=== PATIENT | male | born 1970 | race Caucasian/White ===

== ENCOUNTER 2017-05-25 09:42 | Inpatient (IN) | payer SELFPAY ==
[~2017-05-25] VITALS: Ht 172.7 cm; Wt 102.2 kg
[2017-05-25 09:57] VITALS: Ht 172.7 cm; Wt 102.2 kg
[2017-05-25 11:07] LABS: PLATELET COUNT 190 x10^3mcL (130-400); RED CELL DISTRIBUTION WIDTH 14.2 % (11.5-14.5)
[2017-05-25 11:38] LABS: CALCIUM 7.8 mg/dL (8.5-10.1); CARBON DIOXIDE 25.4 mmol/L (21-32); CHLORIDE SERUM 96 mmol/L (98-107); CREATININE SERUM 1.3 mg/dL (0.7-1.3); GFR1 > 60 mL/min; GLUCOSE SERUM 123 mg/dL (74-106); POTASSIUM SERUM 3.4 mmol/L (3.5-5.1); SODIUM SERUM 134 mmol/L (136-145)
[2017-05-25 11:42] LABS: ALKALINE PHOSPHATASE 66 U/L (46-116); ALT/SGPT 87 U/L (16-63); AST/SGOT 27 U/L (15-37); BILIRUBIN TOTAL 3.64 mg/dL (0.20-1.00); HDL CHOLESTEROL 35 mg/dL (40-60); LIPASE 185 IU/L (73-393); TOTAL PROTEIN, SERUM 7.7 g/dL (6.4-8.2); TRIGLYCERIDES 85 mg/dL (<150)
[2017-05-25 11:43] LABS: ALBUMIN 2.8 g/dL (3.4-5.0); CHOLESTEROL 112 mg/dL (<200); CHOLESTEROL/HDL RATIO 3.2
[2017-05-25 11:44] LABS: BAND NEUTROPHIL 10 % (0-10); BASOPHIL 0 % (0-2); MONOCYTE 7 % (0-7); SEGMENTED NEUTROPHILS 77 % (37-75)
[2017-05-25 11:49] LABS: UA SPECIFIC GRAVITY >=1.030 (1.005-1.035); microscopic required? YES; urine erythrocyte 1+ (NEGATIVE)
[2017-05-25 12:17] LABS: FREE T4 1.22 ng/dL (0.76-1.46)
[2017-05-25 12:42] LABS: T3 TOTAL 0.81 ng/mL
[2017-05-25 14:25] VITALS: BP 114/88
[2017-05-25 15:38] LABS: PHOSPHOROUS 3.2 mg/dL (2.5-4.9)
[2017-05-25 20:48] LABS: BILIRUBIN TOTAL 2.7 mg/dL (0.20-1.00); CALCIUM 7.7 mg/dL (8.5-10.1); CARBON DIOXIDE 24.4 mmol/L (21-32); CREATININE SERUM 1.5 mg/dL (0.7-1.3); POTASSIUM SERUM 3.3 mmol/L (3.5-5.1); TOTAL PROTEIN, SERUM 7.4 g/dL (6.4-8.2)
[2017-05-25 20:50] LABS: ALBUMIN 2.6 g/dL (3.4-5.0)
[2017-05-25 21:13] VITALS: BP 114/71
[2017-05-26 05:50] VITALS: BP 119/80
[2017-05-26 07:27] LABS: BASOPHIL % 0.1 % (0-2); PLATELET COUNT 166 x10^3mcL (130-400); RED CELL DISTRIBUTION WIDTH 14.3 % (11.5-14.5)
[2017-05-26 07:44] LABS: CALCIUM 7.7 mg/dL (8.5-10.1); CARBON DIOXIDE 23.5 mmol/L (21-32); CHLORIDE SERUM 102 mmol/L (98-107); CREATININE SERUM 1.1 mg/dL (0.7-1.3); GFR1 > 60 mL/min; GLUCOSE SERUM 114 mg/dL (74-106); MAGNESIUM 2.3 mg/dL (1.8-2.4); PHOSPHOROUS 2.5 mg/dL (2.5-4.9); POTASSIUM SERUM 3.4 mmol/L (3.5-5.1); SODIUM SERUM 136 mmol/L (136-145)
[2017-05-26 09:53] VITALS: BP 135/93
[2017-05-26 15:29] LABS: PLATELET COUNT 188 x10^3mcL (130-400)
[2017-05-26 15:30] LABS: BASOPHIL % 0 % (0-2)
[2017-05-26 16:26] VITALS: BP 130/90
[2017-05-26 22:19] VITALS: BP 138/70
[2017-05-27 05:56] LABS: CALCIUM 8.1 mg/dL (8.5-10.1); CARBON DIOXIDE 26.4 mmol/L (21-32); CHLORIDE SERUM 105 mmol/L (98-107); CREATININE SERUM 0.9 mg/dL (0.7-1.3); GFR1 > 60 mL/min; GLUCOSE SERUM 115 mg/dL (74-106); POTASSIUM SERUM 4.2 mmol/L (3.5-5.1); SODIUM SERUM 139 mmol/L (136-145)
[2017-05-27 06:34] VITALS: BP 142/92
[2017-05-27 07:02] LABS: PLATELET COUNT 216 x10^3mcL (130-400)
[2017-05-27 07:04] LABS: BASOPHIL % 0 % (0-2); RED CELL DISTRIBUTION WIDTH 14.6 % (11.5-14.5)
[2017-05-27 09:27] VITALS: BP 121/83
[2017-05-27 13:57] VITALS: BP 120/71
[2017-05-27 17:09] VITALS: BP 121/79
[2017-05-27 21:24] VITALS: BP 113/80
[2017-05-28 06:06] VITALS: BP 156/104
[2017-05-28 06:32] VITALS: BP 153/97
[2017-05-28 08:00] LABS: BASOPHIL % 0.3 % (0-2); PLATELET COUNT 226 x10^3mcL (130-400); RED CELL DISTRIBUTION WIDTH 14.5 % (11.5-14.5)
[2017-05-28 09:59] VITALS: BP 145/93
[2017-05-28] MEDS ORDERED: LEVAQUIN750 MG PO (11:53)
[2017-05-28] MEDS ORDERED: FLA500 PO (11:55)
[2017-05-28] MEDS ORDERED: LAC PO (11:57)
[2017-05-28] MEDS ORDERED: IBUPROFEN600 MG PO (12:01)
[2017-05-28 13:14] VITALS: BP 162/101
[2017-05-28 14:43] VITALS: BP 149/98
== END 2017-05-28 16:45 | disposition home or self-care (01) | DRG 853 ==
LOC: ED 09:42 → DU 13:09 → MU 05-26 09:57 → DU 05-27 00:02
PROVIDERS: Family Medicine; Specialist; Surgery
PROC: 0FJ44ZZ Inspection of Gallbladder, Percutaneous Endoscopic Approach (ICD-10-PCS; 2017-05-26)
PROC: 0FT40ZZ Resection of Gallbladder, Open Approach (ICD-10-PCS; principal; 2017-05-26 10:15)
DX: A41.9 Sepsis, unspecified organism (principal); N17.0 Acute kidney failure with tubular necrosis; E43 Unspecified severe protein-calorie malnutrition; K80.00 Calculus of gallbladder with acute cholecystitis without obstruction; N39.0 Urinary tract infection, site not specified; E87.1 Hypo-osmolality and hyponatremia; Z68.35 Body mass index [BMI] 35.0-35.9, adult; R31.9 Hematuria, unspecified; E87.6 Hypokalemia
CPT/HCPCS: 83880; 84439; 94150; J0330; J0690; J1644; J1885; J1956; J2175; J2250; J2405; J2543; J2704; J3010; J3480; J3490; J7030; J7120; Q0092